=== PATIENT | female | born 1995 | race Caucasian/White ===

== ENCOUNTER 2017-12-20 00:40 | Emergency (ER) | payer OTHER ==
[2017-12-20] MEDS ORDERED: Ketorolac INJ* 30 MG/ML 1 ML VIAL IV ONE (01:49)
[2017-12-20] MEDS ORDERED: Metoclopramide IV* 5 MG/ML 2 ML VIAL IV ONE (01:49)
[2017-12-20] MEDS ORDERED: NS 0.9% 1000 ML* 1,000 ML IV ONE (01:49)
[2017-12-20 02:21] LABS: ABS Basophils 0.1 10^3/ul (0-0.2); ABS Eosinophils 0.2 10^3/ul (0-0.6); ABS Lymphocytes 2.7 10^3/ul (1.0-4.8); ABS Monocytes 0.7 10^3/ul (0-0.8); ABS Neutrophils 6.2 10^3/ul (1.5-7.7); ABS Nucleated RBC 0 10^3/ul; Eosinophil % 1.8 % (0-6); Hematocrit 44 % (35-47); Hemoglobin 14.8 g/dl (12.0-16.0); Lymphocyte % 27.6 % (25-47); Mean Corpuscular HGB Conc 34 g/dl (31-36); Mean Corpuscular Hemoglobin 29 pg (27-31); Mean Corpuscular Volume 86 fL (80-97); Mean Platelet Volume 8 um3 (7.4-10.4); Nucleated Red Blood Cells % 0.1; Platelet Count 278 10^3/ul (150-450); Red Blood Count 5.07 10^6/ul (4.0-5.4); Red Cell Distribution Width 14 % (10.5-15); White Blood Count 9.8 10^3/ul (3.5-10.8)
[2017-12-20 02:33] LABS: EGFR Non-African American 94.6 (>60)
[2017-12-20 02:50] LABS: Urine Appearance Clear; Urine Blood Negative (Negative); Urine Color Yellow; Urine Ketones Trace (Negative); Urine Protein Negative (Negative); Urine Specific Gravity 1.028 (1.010-1.030); Urine Urobilinogen Negative (Negative)
[2017-12-20 03:39] VITALS: BP 118/60
--- NOTE | 2017-12-20 03:40 | ED ---
Matthew Meyers Tecjoon, scribsteph for Bryon Sanchez MD on 12/20/17 at 0155 . Abdominal Pain/Female - HPI Summary HPI Summary: This patient is a 22 year old female presenting to [facility] accompanied by male associate drafter with a chief complaint of RLQ abd pain since approx. 1 hour ago. The pain is described as cramping. The pain is rated 6/10 in severity. Symptoms aggravated by lying flat or standing up straight. Symptoms alleviated by nothing. Patient additionally reports nausea. Patient denies vomiting, diarrhea , urinary problems - History of Current Complaint Chief Complaint: EDAbdPain Stated Complaint: ABD PAIN Time Seen by Provider: 12/20/17 01:27 Hx Obtained From: Patient Onset/Duration: Sudden Onset, Lasting Hours - 1, Still Present Timing: Constant Severity Initially: Moderate Severity Currently: Moderate Pain Intensity: 6 Pain Scale Used: 0-10 Numeric Location: Discrete At: RLQ Character: Cramping Aggravating Factor(s): Other: - position - lying flat or standing up straight Alleviating Factor(s): Nothing Associated Signs and Symptoms: Positive: Negative - vomiting, diarrhea, urinary problems, Nausea Allergies/Adverse Reactions: Allergies Allergy/AdvReac Type Severity Reaction Status Date / Time No Known Allergies Allergy Verified 12/20/17 01:29 PMH/Surg Hx/FS Hx/Imm Hx Previously Healthy: Yes Opthamlomology History: Denies: Hx Legally Blind EENT History: Denies: Hx Deafness - Immunization History Date of Tetanus Vaccine: utd Date of Influenza Vaccine: utd Immunizations Up to Date: Yes Infectious Disease History: No Infectious Disease History: Denies: Traveled Outside the [place] in Last 30 Days - Family History Known Family History: Positive: Hypertension - Social History Occupation: Student Alcohol Use: Rare Hx Substance Use: No Substance Use Type: Reports: None Hx Tobacco Use: No Smoking Status (MU): Never Smoked Tobacco Review of Systems Negative: Fever Positive: Abdominal Pain, Nausea. Negative: Vomiting, Diarrhea Genitourinary: Negative - urinary problems All Other Systems Reviewed And Are Negative: Yes Physical Exam - Summary Physical Exam Summary: VITAL SIGNS: Reviewed. GENERAL: Patient is a well-developed and nourished (MALE OR FEMALE) who is lying comfortable in the stretcher. Patient is not in any acute respiratory distress. HEAD AND FACE: No signs of trauma. No ecchymosis, hematomas or skull depressions. No sinus tenderness. EYES: PERRLA, EOMI x 2, No injected conjunctiva, no nystagmus. EARS: Hearing grossly intact. Ear canals and tympanic membranes are within normal limits. MOUTH: Oropharynx within normal limits. NECK: Supple, trachea is midline, no adenopathy, no JVD, no carotid bruit, no c- spine tenderness, neck with full ROM. CHEST: Symmetric, no tenderness at palpation LUNGS: Clear to auscultation bilaterally. No wheezing or crackles. CVS: Regular rate and rhythm, S1 and S2 present, no murmurs or gallops appreciated. ABDOMEN: Mild RLQ tenderness EXTREMITIES: FROM in all major joints, no edema, no cyanosis or clubbing. NEURO: Alert and oriented x 3. No acute neurological deficits. Speech is normal and follows commands. SKIN: Dry and warm Triage Information Reviewed: Yes Vital Signs On Initial Exam: Initial Vitals Temp Pulse Resp BP Pulse Ox 98.2 F 93 16 182/78 100 12/20/17 00:53 12/20/17 00:53 12/20/17 00:53 12/20/17 00:53 12/20/17 00:53 Vital Signs Reviewed: Yes Diagnostics - Vital Signs Vital Signs Temp Pulse Resp BP Pulse Ox 12/20/17 01:33 98 20 100 12/20/17 01:31 128/68 12/20/17 00:53 98.2 F 93 16 182/78 100 - Laboratory Lab Results: Lab Results 12/20/17 12/20/17 12/20/17 Range/Units 02:05 02:05 02:10 WBC 9.8 (3.5-10.8) 10^3/ul RBC 5.07 (4.0-5.4) 10^6/ul Hgb 14.8 (12.0-16.0) g/dl Hct 44 (35-47) % MCV 86 (80-97) fL MCH 29 (27-31) pg MCHC 34 (31-36) g/dl RDW 14 (10.5-15) % Plt Count 278 (150-450) 10^3/ul MPV 8 (7.4-10.4) um3 Neut % (Auto) 63.3 (38-83) % Lymph % (Auto) 27.6 (25-47) % [place] % (Auto) 6.7 (1-9) % Eos % (Auto) 1.8 (0-6) % Baso % (Auto) 0.6 (0-2) % Absolute Neuts (auto) 6.2 (1.5-7.7) 10^3/ul Absolute Lymphs (auto) 2.7 (1.0-4.8) 10^3/ul Absolute Monos (auto) 0.7 (0-0.8) 10^3/ul Absolute Eos (auto) 0.2 (0-0.6) 10^3/ul Absolute Basos (auto) 0.1 (0-0.2) 10^3/ul Absolute Nucleated RBC 0 10^3/ul Nucleated RBC % 0.1 Sodium 135 (133-145) mmol/L Potassium 3.8 (3.5-5.0) mmol/L Chloride 103 (101-111) mmol/L Carbon Dioxide 25 (22-32) mmol/L Anion Gap 7 (2-11) mmol/L BUN 15 (6-24) mg/dL Creatinine 0.77 (0.51-0.95) mg/dL Est GFR ( Amer) 121.7 (>60) Est GFR (Non-Af Amer) 94.6 (>60) BUN/Creatinine Ratio 19.5 (8-20) Glucose 86 (70-100) mg/dL Calcium 9.4 (8.6-10.3) mg/dL Total Bilirubin 0.50 (0.2-1.0) mg/dL AST 15 (13-39) U/L ALT 9 (7-52) U/L Alkaline Phosphatase 53 (34-104) U/L C-Reactive Protein 1.70 (< 5.00) mg/L Total Protein 7.3 (6.4-8.9) g/dL Albumin 4.6 (3.2-5.2) g/dL Globulin 2.7 (2-4) g/dL Albumin/Globulin Ratio 1.7 (1-3) Lipase 19 (11.0-82.0) U/L Beta HCG, Quant < 0.60 mIU/mL Urine Color Yellow Urine Appearance Clear Urine pH 6.0 (5-9) Ur Specific [place] 1.028 (1.010-1.030) Urine Protein Negative (Negative) Urine Ketones Trace H (Negative) Urine Blood Negative (Negative) Urine Nitrate Negative (Negative) Urine Bilirubin Negative (Negative) Urine Urobilinogen Negative (Negative) Ur Leukocyte Esterase Negative (Negative) Urine Glucose Negative (Negative) Urine Ascorbic Acid * H (Negative) Result Diagrams: 12/20/17 02:05 12/20/17 02:05 Lab Statement: Any lab studies that have been ordered have been reviewed, and results considered in the medical decision making process. Abdominal Pain Fem Course/Dx - Course Course Of Treatment: This patient is a 22 year old female presenting to [facility] accompanied by male associate drafter with a chief complaint of RLQ abd pain since approx. 1 hour ago. The pain is described as cramping. Bloodwork Obtained. Urinalysis Obtained. In the ED course the patient was given Toradol, Reglan. Patient will be diagnosed with abd pain and discharged. Patient is advised to follow up with their PCP in 3 days. The patient is agreeable with this plan. - Diagnoses Provider Diagnoses: Abdominal pain Discharge - Discharge Plan Condition: Stable Disposition: HOME Patient Education Materials: Abdominal Pain (ED) Referrals: No Primary Care Phys,NOPCP [Primary Care Provider] - [facility] [place] [facility] [place]] - 3 Days Additional Instructions: Return to the ED for any new or worsening symptoms. The documentation as recorded by the Matthew german Tecjoon accurately reflects the service I personally performed and the decisions made by Laura kenyon Abdul, MD.
== END 2017-12-20 03:48 | disposition home or self-care (01) ==
LOC: ED 00:40
DX: R10.31 Right lower quadrant pain (principal)
CPT/HCPCS: 36415; 80053; 81003; 83690; 84702; 85025; 86140; 96361; 96374; 96375; 99283; J1885; J2765